=== PATIENT | female | born 1965 | race Caucasian/White ===

== ENCOUNTER 2018-02-04 12:32 | Emergency (ER) | END 2018-02-04 18:36 | disposition home or self-care (01) ==

== ENCOUNTER 2019-03-07 07:12 | Emergency (ER) | payer SELFPAY ==
[~2019-03-07] VITALS: Ht 162.6 cm; Wt 83.0 kg
[~2019-03-07 07:12] MED LIST: CLIN300C10 PO; CYCL10TA7 PO; IBUP-1542 PO
[2019-03-07 07:16] VITALS: Ht 162.6 cm; Wt 83.0 kg
[2019-03-07] MEDS ORDERED: morphine 2 MG INJ IV STA (08:42)
[2019-03-07] MEDS ORDERED: ONDANSETRON 4 MG INJ IV STA (08:42)
[2019-03-07] MEDS ORDERED: SOD CHLORIDE 0.9% 1,000 ML IV ONE (09:00)
[2019-03-07] MEDS ORDERED: IOHEXOL 100 ML ONE (09:52)
[2019-03-07] MEDS ORDERED: SOD CHLORIDE 0.9% 100 ML ONE (09:52)
[2019-03-07 10:27] VITALS: BP 125/76; PULSE 88; RESP 18
== END 2019-03-07 10:28 | disposition home or self-care (01) ==
LOC: FTE 07:12
DX: M54.12 Radiculopathy, cervical region (principal); I10 Essential (primary) hypertension; R51 Headache
CPT/HCPCS: 70450; 70498; 80053; 81025; 84484; 85025; 93005; 96361; 96374; 96375; 99285; J2270; J2405; J7030; Q9967